=== PATIENT | male | born 1995 | race Caucasian/White ===

== ENCOUNTER 2020-03-01 22:07 | Emergency (ER) | payer MEDICAID ==
[~2020-03-01] VITALS: Ht 177.8 cm; Wt 113.6 kg
[2020-03-01] MEDS ORDERED: ACETAMINOPHEN 500 MG TABLET PO ONE (23:00)
[2020-03-01] MEDS ORDERED: BACITRACIN 0.9 GM PACKET OINTMENT TP ONE (23:00)
[2020-03-01] MEDS ORDERED: LIDOCAINE 1% 10 ML VIAL INJ ONE (23:00)
[2020-03-01 23:50] VITALS: BP 133/71
== END 2020-03-01 23:52 | disposition home or self-care (01) ==
LOC: EMS 22:07
DX: S01.511A Laceration without foreign body of lip, initial encounter (principal); F17.210 Nicotine dependence, cigarettes, uncomplicated; J45.909 Unspecified asthma, uncomplicated; F12.90 Cannabis use, unspecified, uncomplicated; F14.90 Cocaine use, unspecified, uncomplicated; W19.XXXA Unspecified fall, initial encounter; Y93.89 Activity, other specified; Y92.89 Other specified places as the place of occurrence of the external cause; Y99.8 Other external cause status
CPT/HCPCS: 40650; 99284; J3490

== ENCOUNTER 2020-03-09 16:15 | Emergency (ER) | payer MEDICAID ==
[~2020-03-09] VITALS: Ht 177.8 cm; Wt 113.6 kg
[2020-03-09 16:18] VITALS: BP 129/71
== END 2020-03-09 17:14 | disposition home or self-care (01) ==
LOC: EMS 16:15
DX: S01.511D Laceration without foreign body of lip, subsequent encounter (principal); J45.909 Unspecified asthma, uncomplicated; F17.210 Nicotine dependence, cigarettes, uncomplicated; F14.10 Cocaine abuse, uncomplicated; X58.XXXD Exposure to other specified factors, subsequent encounter
CPT/HCPCS: Z7502